=== PATIENT | female | born 1950 | race Caucasian/White ===

== ENCOUNTER 2021-01-25 07:22 | Emergency (ER) | payer MEDICARE ==
[~2021-01-25] VITALS: Ht 170.2 cm; Wt 71.2 kg
[2021-01-25] MEDS ORDERED: SODIUM CHLORIDE 0.9% 1000ML 1,000 ML IV STA (07:41)
[2021-01-25 07:51] LABS: BASOPHILS % 0.4 % (0.0-1.0); EOSINOPHILS % 0.4 % (0.0-6.0); HEMOGLOBIN 14.3 g/dL (12.0-16.0); LYMPHOCYTES # (AUTO) 1.1 (1.0-3.2); LYMPHOCYTES % 16.8 % (18.0-39.1); MEAN CORPUSCULAR HEMOGLOBIN 27.3 pg (28-32); MEAN CORPUSCULAR HGB CONC 31.8 g/dL (31-35); MONOCYTES # (AUTO) 0.4 (0.2-0.8); MONOCYTES % 6.2 % (4.4-11.3); NEUTROPHILS # (AUTO) 5.1 (2.1-6.9); NEUTROPHILS % 75.9 % (38.7-80.0); PLATELET COUNT 269 x10e3/uL (140-360); RED BLOOD COUNT 5.23 x10e6/uL (3.6-5.1); RED CELL DISTRIBUTION WIDTH 13.1 % (11.7-14.4)
[2021-01-25 08:02] LABS: INR 0.94; PROTHROMBIN TIME 12.8 seconds (11.9-14.5)
[2021-01-25 08:03] LABS: PARTIAL THROMBOPLASTIN TIME 23.7 seconds (23.8-35.5)
[2021-01-25 08:12] LABS: ALANINE AMINOTRANSFERASE 23 IU/L (0-55); ALBUMIN 4.3 g/dL (3.5-5.0); ALBUMIN/GLOBULIN RATIO 1.4 (0.8-2.0); ALKALINE PHOSPHATASE 95 IU/L (40-150); ANION GAP 18.9 mmol/L (8-16); BLOOD UREA NITROGEN 17 mg/dL (7-26); BUN/CREATININE RATIO 23 (6-25); CALCIUM 8.9 mg/dL (8.4-10.2); CARBON DIOXIDE 21 mmol/L (22-29); CHLORIDE 104 mmol/L (98-107); CREATINE KINASE 70 IU/L (29-168); CREATININE, SERUM 0.74 mg/dL (0.57-1.11); EST GLOMERULAR FILTRATION RATE 78 ML/MIN (60-); GLUCOSE 133 mg/dL (74-118); POTASSIUM 3.9 mmol/L (3.5-5.1); SODIUM 140 mmol/L (136-145)
[2021-01-25 10:20] LABS: BACTERIA,URINE RARE /HPF; CLARITY,URINE CLEAR (CLEAR); COLOR,URINE YELLOW (YELLOW); EPITHELIAL CELLS,URINE FEW /LPF; KETONES,URINE NEGATIVE (NEGATIVE); LEUKOCYTE ESTERASE ,URINE TRACE (NEGATIVE); NITRITE,URINE NEGATIVE (NEGATIVE); PROTEIN,URINE DIPSTICK NEGATIVE (NEGATIVE); URINE UROBILINOGEN 0.2 mg/dL (0.2 - 1); WBC,URINE (MAN) 0-5 /HPF (0-5)
== END 2021-01-25 10:54 | disposition home or self-care (01) ==
LOC: ER 07:30
DX: R42 Dizziness and giddiness (principal)
CPT/HCPCS: 36415; 70450; 71045; 80053; 81001; 82550; 82553; 84484; 85025; 85610; 85730; 93005; 99284; J7030

== ENCOUNTER 2024-11-20 10:31 | Inpatient (IN) | payer MEDICARE, OTHER ==
[~2024-11-20] VITALS: Ht 172.7 cm; Wt 70.8 kg
[2024-11-20] MEDS ORDERED: Morphine 2mg Syringe 2 MG/ML SYR IV ONE (11:00)
[2024-11-20 11:25] LABS: BASOPHILS % 0.6 % (0.0-1.0); EOSINOPHILS % 2.2 % (0.0-6.0); LYMPHOCYTES % 16.3 % (18.0-39.1); MONOCYTES % 11.3 % (4.4-11.3); NEUTROPHILS % 69.3 % (38.7-80.0); RED CELL DISTRIBUTION WIDTH 11.7 % (11.7-14.4)
[2024-11-20 11:39] LABS: LEUKOCYTE ESTERASE ,URINE SMALL (NEGATIVE); PROTEIN,URINE DIPSTICK NEGATIVE (NEGATIVE); URINE UROBILINOGEN 0.2 mg/dL (0.2 - 1)
[2024-11-20 11:46] LABS: EPITHELIAL CELLS,URINE MODERATE /LPF; WBC,URINE (MAN) 0-5 /HPF (0-5)
[2024-11-20 11:48] LABS: EST GLOMERULAR FILTRATION RATE 83.0 ML/MIN (>=60)
[2024-11-20] MEDS ORDERED: IOPAMIDOL 370 MG/ML 100 ML INFUS..BTL INJ ONE (12:13)
[2024-11-20] MEDS: ONDANSETRON HCL INJ 2MG/ML 2ML 2 MG/ML VIAL IV STA (12:24)
[2024-11-20] MEDS: SODIUM CHLORIDE 0.9% 1000ML 1,000 ML IV ONE (12:30)
[2024-11-20 14:09] VITALS: PULSE 84; RESP 16; TEMP 98.4
[2024-11-20] MEDS: SODIUM CHLORIDE 0.9% 1000ML 1,000 ML IV SCH (14:14)
[2024-11-20] MEDS ORDERED: SERTRALINE HCL50 MG PO (14:52)
[2024-11-20] MEDS ORDERED: OMEPRAZOLE40 MG PO (14:52)
[2024-11-20] MEDS ORDERED: CARAFATE1 GM PO (14:53)
[2024-11-20] MEDS ORDERED: IMITREX100 MG PO (14:53)
[2024-11-20 15:32] VITALS: BP 128/59; PULSE 82; RESP 20; TEMP 97.8; O2SAT 100
[2024-11-20] MEDS: ACETAMINOPHEN 325 MG TAB PO ONE (17:01)
[2024-11-20 20:00] VITALS: BP 119/55; PULSE 71; RESP 18; TEMP 97.6; O2SAT 99
[2024-11-20] MEDS: Morphine 2mg Syringe 2 MG/ML SYR IV PRN (21:23)
[2024-11-20] MEDS: ONDANSETRON HCL INJ 2MG/ML 2ML 2 MG/ML VIAL IV PRN (21:23)
[2024-11-21] VITALS (9 sets, daily range): BP systolic 105–129; BP diastolic 54–78; PULSE 68–83; RESP 18; TEMP 97–98.1; O2SAT 96–99
[2024-11-21 08:10] LABS: BASOPHILS % 0.7 % (0.0-1.0); EOSINOPHILS % 2.7 % (0.0-6.0); LYMPHOCYTES % 26.2 % (18.0-39.1); MONOCYTES % 9.2 % (4.4-11.3); NEUTROPHILS % 60.7 % (38.7-80.0); RED CELL DISTRIBUTION WIDTH 11.6 % (11.7-14.4)
[2024-11-21 08:30] LABS: EST GLOMERULAR FILTRATION RATE 88.0 ML/MIN (>=60)
[2024-11-21] MEDS ORDERED: SUCRALFATE 1 GM TAB PO PRN (09:30)
[2024-11-21] MEDS: PANTOPRAZOLE SOD 40 MG TABEC PO SCH (17:18)
[2024-11-21] MEDS: SERTRALINE HCL 50 MG TAB PO SCH (20:59)
[2024-11-22] VITALS (8 sets, daily range): BP systolic 116–134; BP diastolic 58–78; PULSE 64–83; RESP 17–19; TEMP 97.4–98.3; O2SAT 96–99
[2024-11-22] MEDS: PANTOPRAZOLE SOD 40 MG TABEC PO SCH (09:15)
[2024-11-22] MEDS: SUMATRIPTAN SUCCINATE 25 MG TAB PO PRN (13:49)
[2024-11-23 03:00] VITALS: BP 136/76; PULSE 85; RESP 18; TEMP 97.4; O2SAT 97
[2024-11-23 08:05] VITALS: BP 122/70; PULSE 78; RESP 18; TEMP 97; O2SAT 99
[2024-11-23 08:30] VITALS: BP 122/70; PULSE 78; RESP 18; TEMP 97; O2SAT 99
[2024-11-23 11:27] VITALS: BP 104/63; PULSE 74; RESP 18; TEMP 98.2; O2SAT 97
== END 2024-11-23 16:22 | disposition home or self-care (01) | DRG 392 ==
LOC: ER 10:48 → ERHOLD 13:50 → MED/SURG 14:19
PROVIDERS: ADMIT Internal Medicine; ATTEND Internal Medicine
DX: K57.32 Diverticulitis of large intestine without perforation or abscess without bleeding (principal); K58.9 Irritable bowel syndrome, unspecified; K21.9 Gastro-esophageal reflux disease without esophagitis; G43.909 Migraine, unspecified, not intractable, without status migrainosus; F32.A Depression, unspecified; H81.09 Meniere's disease, unspecified ear; Z90.49 Acquired absence of other specified parts of digestive tract; Z90.710 Acquired absence of both cervix and uterus; Z88.1 Allergy status to other antibiotic agents; Z88.8 Allergy status to other drugs, medicaments and biological substances
CPT/HCPCS: 36415; 74177; 80053; 81001; 83690; 85025; 99284; J2270; J2405; J2470; J2543; J7030; Q9967